=== PATIENT | female | born 1950 | race Caucasian/White ===

== ENCOUNTER 2019-01-08 12:11 | Emergency (ER) | payer MEDICARE, OTHER ==
[~2019-01-08] VITALS: Ht 165.1 cm; Wt 93.4 kg
--- OUTSIDE RECORDS SUMMARY | 2019-01-08 12:13 | XMS REPORT ---
Author Author Admin, [place] Organization [facility] Address [address] [address] Phone Allergies, Adverse Reactions, Alerts Allergy Name Reaction Description Start Date Severity Status Provider MORPHINE Critical Active Tanesha Sloan MD Conditions or Problems Problem Name Problem Code Onset Date Status Entry Date Provider Comment Standard Description Annotate GENERALIZED ANXIETY DISORDER Active Ana Estes PMHNP Generalized anxiety disorder Unspecified cervical disc disorder at C4-C5 level Active Agapito Quan MD (res) s/p discectomy on 07/22/17 Trochanteric bursitis, right 726.5 Active Tanesha Sloan MD Enthesopathy of hip region Hip joint pain, right 719.45 Active Tanesha Sloan MD Pain in joint involving pelvic region and thigh Poor dentition 520.9 Active Agapito Quan MD (res) Unspecified disorder of tooth development and eruption Patient has full dentures 520.0 Active Chente Levine MD Anodontia Vaccination for strep pneumonia with Prevnar 13 V03.82 Active Chente Levine MD Need for prophylactic vaccination against Streptococcus pneumoniae [pneumococcus] Arm lesion 709.9 Active Chente Levine MD Unspecified disorder of skin and subcutaneous tissue Screening for malignancy, skin V76.43 Active Chente Levine MD Screening for malignant neoplasms of the skin Age related nuclear cataract, bilateral 366.16 Active Agapito Quan MD (res) Senile nuclear sclerosis Dyslipidemia 272.4 Active Mariluz Moore MD Other and unspecified hyperlipidemia Obesity Active Mariluz Moore MD Obesity, unspecified BMI 33.0-33.9 Active Chente Levine MD Body Mass Index 33.0-33.9, adult Decreased vision 369.00 Active Chente Levine MD Blindness of both eyes, impairment level not further specified Lumbago 724.2 Active Chente Levine MD Lumbago Allergic rhinitis 477.9 Active Tanesha Sloan MD Allergic rhinitis, cause unspecified Constipation Unspecified 564.00 Active Tanesha Sloan MD Constipation, unspecified Hoarseness 784.42 Active Tanesha Sloan MD Dysphonia ANXIETY DISORDER, UNSPECIFIED Active Ana Estes PMHNP Anxiety state, unspecified DEPRESSIVE DISORDER, MAJOR, RECURRENT EPISODE, MILD Active Ana Estes PMHNP Major depressive disorder, recurrent episode, mild degree Cough ICD-786.2 Inactive Tram Carrion MD (res) Dysuria ICD-788.1 Inactive Tram Carrion MD (res) Insect bite ICD-919.4 Inactive Tram Carrion MD (res) Nancie of vagina ICD-112.1 Inactive Tram Carrion MD (res) Scientific Editor well woman exam ICD-V72.31 Inactive Tram Carrion MD (res) Screening for lipid disorders ICD-V77.91 Inactive Tram Carrion MD (res) Thrush, oral ICD-112.0 Inactive Tram Carrion MD (res) Vaginal discharge ICD-623.5 Inactive Tram Carrion MD (res) Cough 786.2 Resolved Tanesha Sloan MD Cough Dysuria 788.1 Resolved Tanesha Sloan MD Dysuria Insect bite 919.4 Resolved Tanesha Sloan MD Insect bite, nonvenomous, of other, multiple, and unspecified sites, without mention of infection Nancie of vagina 112.1 Resolved Tanesha Sloan MD Candidiasis of vulva and vagina Scientific Editor well woman exam V72.31 Resolved Tanesha Sloan MD Routine gynecological examination Screening for lipid disorders V77.91 Resolved Tanesha Sloan MD Screening for lipoid disorders Thrush, oral 112.0 Resolved Tanesha Sloan MD Candidiasis of mouth Vaginal discharge 623.5 Resolved Tanesha Slaon MD Leukorrhea, not specified as infective Medication List Medication Instructions Start Date Stop Date Generic Name NDC Status Provider Patient Instruction NAPROXEN 500 MG ORAL TABLET 1 by mouth twice a day as needed for pain and inflammation NAPROXEN 77641301940 Active Agapito Quan MD (res) Active ENSURE ORAL LIQUID 1 can three times a day NUTRITIONAL SUPPLEMENTS 20859528405 Active Agapito Quan MD (res) Active TESSALON PERLES 100 MG ORAL CAPSULE 1 by mouth 3 times a day as needed for cough BENZONATATE 22156615993 Active Agapito Quan MD (res) Active AZELASTINE HCL 0.15 % NASAL SOLUTION spray in each nostril as directed AZELASTINE HCL 72928076281 Active Chente Levine MD Active DIFLUCAN 150 MG ORAL TABLET take one tab By Mouth once then repeat dose in 72 hours FLUCONAZOLE 36527479096 Active Agapito Quan MD (res) Active TRAZODONE HCL 150 MG ORAL TABLET Take one tablet By Mouth QHS TRAZODONE HCL 41257905015 Active Ana Estes PMHNP Active CLONAZEPAM 2 MG ORAL TABLET take one tablet By Mouth BID As Needed for anxiety CLONAZEPAM 11720327354 Active Ana Estes [facility] Active LOSARTAN POTASSIUM 100 MG ORAL TABLET Take one By Mouth every morning for blood pressure LOSARTAN POTASSIUM 20760464938 Active Tanesha Sloan MD Active TRAMADOL HCL 50 MG ORAL TABLET Take one tablet By Mouth every 6 hrs As Needed TRAMADOL HCL 17544290735 Active Ana Estes [facility] Active VENLAFAXINE HCL ER 225 MG ORAL TABLET EXTENDED RELEASE 24 HOUR Take 1 tablet By Mouth QAM VENLAFAXINE HCL 06000204888 Active Ana Estes [facility] Active ZETIA 10 MG ORAL TABLET Take one tablet By Mouth Q EZETIMIBE 83946351052 Active Mignon Matthews [facility] GAS APPLIANCE INSTALLER Active MIRTAZAPINE 7.5 MG ORAL TABLET Take 1 tablet By Mouth QHS MIRTAZAPINE 7.5 MG ORAL TABLET 197058 MIRTAZAPINE Inactive PROZAC 20 MG ORAL CAPSULE Take 1 tablet By Mouth QHS PROZAC 20 MG ORAL CAPSULE 804521 FLUOXETINE HCL Inactive CLOTRIMAZOLE 10 MG MOUTH/THROAT ALL place on tongue and allow to dissolve five times a day for two weeks CLOTRIMAZOLE 10 MG MOUTH/THROAT ALL 545112 CLOTRIMAZOLE Inactive CELEXA 10 MG ORAL TABLET Take one tablet By Mouth QHS CELEXA 10 MG ORAL TABLET 661107 CITALOPRAM HYDROBROMIDE Inactive ZOLPIDEM TARTRATE 5 MG ORAL TABLET Take one tablet By Mouth QHS As Needed for insomnia ZOLPIDEM TARTRATE 5 MG ORAL TABLET 728600 ZOLPIDEM TARTRATE Inactive MIRTAZAPINE 7.5 MG ORAL TABLET Take 1 tablet By Mouth QHS MIRTAZAPINE 94699600922 No Longer Active Ana Estes [facility] Active PROZAC 20 MG ORAL CAPSULE Take 1 tablet By Mouth QHS FLUOXETINE HCL 02771669454 No Longer Active Ana Estes [facility] Active CLOTRIMAZOLE 10 MG MOUTH/THROAT ALL place on tongue and allow to dissolve five times a day for two weeks CLOTRIMAZOLE 21010896052 No Longer Active Agapito Quan MD (res) Active BELSOMRA 10 MG ORAL TABLET Take one tablet By Mouth QHS SUVOREXANT 20221538768 No Longer Active Ana Estes HN Active CELEXA 10 MG ORAL TABLET Take one tablet By Mouth QHS CITALOPRAM HYDROBROMIDE 40113323816 No Longer Active Ana Estes HN Active ZOLPIDEM TARTRATE 5 MG ORAL TABLET Take one tablet By Mouth QHS As Needed for insomnia ZOLPIDEM TARTRATE 62761853121 No Longer Active Ana RIZVIHN Active Immunizations Vaccine Administration Date Value Standard Description PEDIATRIC PNEUMOCOCCAL VACCINE ([id number]) #1 given pneumococcal conjugate vaccine, 13 valent Vital Signs Date Name Value Unit Range Description blood pressure, diastolic 67 mm[Hg] BP amato blood pressure, systolic 107 mm[Hg] BP sys height E&M 65 [in_us] Bdy height pulse rate E&M 76 /min Heart rate weight E&M 206.13 [lb_av] Weight Measured blood pressure, diastolic 87 mm[Hg] BP amato blood pressure, systolic 144 mm[Hg] BP sys height E&M 65 [in_us] Bdy height pulse rate E&M 82 /min Heart rate weight E&M 203.13 [lb_av] Weight Measured blood pressure, diastolic 73 mm[Hg] BP amato blood pressure, systolic 112 mm[Hg] BP sys height E&M 65 [in_us] Bdy height pulse rate E&M 76 /min Heart rate weight E&M 200 [lb_av] Weight Measured blood pressure, diastolic 84 mm[Hg] BP amato blood pressure, systolic 126 mm[Hg] BP sys height E&M 65 [in_us] Bdy height pulse rate E&M 80 /min Heart rate weight E&M 198.60 [lb_av] Weight Measured blood pressure, diastolic 84 mm[Hg] BP amato blood pressure, systolic 130 mm[Hg] BP sys height E&M 65 [in_us] Bdy height pulse rate E&M 67 /min Heart rate weight E&M 196.25 [lb_av] Weight Measured blood pressure, diastolic 78 mm[Hg] BP amato blood pressure, systolic 125 mm[Hg] BP sys height E&M 65 [in_us] Bdy height pulse rate E&M 79 /min Heart rate weight E&M 199.60 [lb_av] Weight Measured Diagnostic Results Date Name Value Unit Range Description Lab Report: Comp. Metabolic Panel (14), Lipid Panel - Chemistry sodium, serum 146 mmol/L 134-144 Office Visit: Acute Visit RM#5-quan - Urinalysis protein, urine, semiquantitative (dipstick) 2+ Lab Report: Comp. Metabolic Panel (14), Lipid Panel - Chemistry very low density lipoproteins 21 mg/dL 5-40 carbon dioxide, venous blood 25 mmol/L 18-29 chloride, serum 105 mmol/L 96-106 triglyceride, serum, fasting 103 mg/dL 0-149 calcium, serum 9.4 mg/dL 8.7-10.3 urea nitrogen, blood 11 mg/dL 8-27 alanine aminotransferase (SGPT), serum 13 U/L 0-32 Office Visit: Acute Visit RM#5-quan - Urinalysis leukocyte esterase, urine, by dipstick negative specific gravity, urine 1.010 Lab Report: Comp. Metabolic Panel (14), Lipid Panel - Chemistry protein, total, serum 6.3 g/dL 6.0-8.5 Office Visit: Acute Visit RM#5-quan - Urinalysis nitrite, urine, semiquantitative negative Lab Report: Comp. Metabolic Panel (14), Lipid Panel - Chemistry alkaline phosphatase, serum 93 U/L 39-117 Office Visit: Acute Visit RM#5-quan - Urinalysis urine color yellow bilirubin, urine negative Lab Report: Comp. Metabolic Panel (14), Lipid Panel - Chemistry LDL cholesterol, serum 124 mg/dL 0-99 urea nitrogen/creatinine ratio, serum 15 12-28 Office Visit: Acute Visit RM#5-quan - Urinalysis glucose, urine, semiquantitative negative Lab Report: Comp. Metabolic Panel (14), Lipid Panel - Chemistry HDL cholesterol, serum 47 mg/dL >39 Lab Report: Comp. Metabolic Panel (14), Lipid Panel - Genetics/fertility eGFR if 97 mL/min/1.73m2 >59 Lab Report: Comp. Metabolic Panel (14), Lipid Panel - Chemistry globulin, serum 2.5 1.5-4.5 Estimated Glomerular Filtration Rate (calc) 84 mL/min/1.73m2 >59 albumin/globulin ratio, serum 1.5 1.2-2.2 creatinine, serum 0.74 mg/dL 0.57-1.00 cholesterol, serum 192 mg/dL 531-887 1971/08/21 bilirubin, serum, total 0.4 mg/dL 0.0-1.2 Office Visit: Acute Visit RM#5-quan - Urinalysis appearance, urine clear blood in urine (hemoglobin) by dipstick negative Lab Report: Comp. Metabolic Panel (14), Lipid Panel - Chemistry blood glucose, random 108 mg/dL 65-99 aspartate aminotransferase (SGOT), serum 14 U/L 0-40 Office Visit: Acute Visit RM#5-quan - Urinalysis urobilinogen, urine, semiquantitative (dipstick) 1 pH, urine, semiquantitative 6.0 Lab Report: Comp. Metabolic Panel (14), Lipid Panel - Chemistry potassium, serum 4.9 mmol/L 3.5-5.2 Office Visit: Acute Visit RM#5-quan - Urinalysis ketones, urine, by test strip negative Lab Report: Comp. Metabolic Panel (14), Lipid Panel - Chemistry albumin, serum 3.8 g/dL 3.6-4.8 Encounters Date Encounter Provider Code Facility 08:39:31 CDT Est Patient Exp Problem - 53780 Ana Estes PMHNP CPT-24261 [facility] 08:54:30 CDT Est Patient Exp Problem - 01297 Ana Estes PMHNP CPT-64024 [facility] 10:12:21 CDT Est Patient Exp Problem - 80581 Ana Estes PMHNP CPT-29162 [facility] 10:15:18 CLASSIFIER TENDER Est Patient Exp Problem - 92232 Ana Estes PMHNP CPT-54860 [facility] 09:41:40 CLASSIFIER TENDER Est Patient Exp Problem - 56597 Ana Estes PMHNP CPT-73206 [facility] 10:27:51 CDT Est Patient Detailed - 41156 Ana Estes PMHNP CPT-24479 [facility] 09:35:55 CDT Est Patient Exp Problem - 37805 Ana Parkinsonley PMHNP CPT-51337 [facility] 17:27:27 CDT Est Patient Exp Problem - 36157 Ana Estes PMHNP CPT-03010 [facility] 13:50:32 CDT Est Patient Exp Problem - 23344 [facility] 16:54:56 CDT Est Patient Exp Problem - 91172 Tanesha Sloan MD CPT-76005 [facility] 22:30:53 CDT Est Patient Exp Problem - 60635 Tanesha Sloan MD CPT-30977 [facility] 09:33:01 CLASSIFIER TENDER Est Patient Exp Problem - 46479 Ana Estes PMHNP CPT-94629 [facility] 13:52:46 CLASSIFIER TENDER Est Patient Exp Problem - 61287 Agapito Quan MD (res) CPT-02564 [facility] 00:07:42 CLASSIFIER TENDER Est Patient Detailed - 35448 Tanesha Sloan MD CPT-74658 [facility] 08:57:28 CLASSIFIER TENDER Est Patient Exp Problem - 96339 Ana Estes PMHNP CPT-51362 [facility] 09:34:08 CDT Est Patient Exp Problem - 93584 Ana Estes PMHNP CPT-20852 [facility] 15:06:47 CDT Est Patient Exp Problem - 29637 Chente Levine MD CPT-04668 [facility] 11:35:37 CDT Est Patient Exp Problem - 13932 Ana Estes PMHNP CPT-83231 [facility] 11:05:55 CDT Est Patient Exp Problem - 34273 Mariluz Moore MD CPT-39315 [facility] 10:54:32 CDT Est Patient Exp Problem - 82182 Agapito Quan MD (res) CPT-70393 [facility] 11:20:59 CDT Est Patient Exp Problem - 98521 Ana Estes PMHNP CPT-17111 [facility] 15:13:12 CDT Est Patient Exp Problem - 78741 Agapito Quan MD (res) CPT-96323 [facility] 11:24:04 CDT Est Patient Exp Problem - 19386 Ana Estes PMHNP CPT-45882 [facility] Procedures Code Procedure Name Date Entry Date Standard Description CPT-42558 Aspiration / Injection - Intermediate Joint / Bursa 16:54:56 CDT CPT-79720 Psychotherapy 45 (38-52*) min - 23121 (with patient and/or family member) 11:18:48 CDT CPT-59696 Psychotherapy 45 (38-52*) min - 30366 (with patient and/or family member) 11:46:35 CDT CPT-83562 Psychotherapy 45 (38-52*) min - 70646 (with patient and/or family member) 14:56:54 CLASSIFIER TENDER CPT-13650 Psychotherapy 45 (38-52*) min - 92958 (with patient and/or family member) 11:11:45 CLASSIFIER TENDER CPT-78891 Prevnar 13 Valent (Pneumoncoccal Conj Vaccine IM) - 19041 13:52:48 CLASSIFIER TENDER CPT-40224 Psychotherapy 45 (38-52*) min - 33789 (with patient and/or family member) 10:42:55 CLASSIFIER TENDER CPT-36505 Psychotherapy 45 (38-52*) min - 88915 (with patient and/or family member) 11:53:54 CLASSIFIER TENDER CPT-31362 Diagnostic evaluation (no medical) - 68323 10:37:12 CLASSIFIER TENDER CPT-71840 [place] - In House 11:05:55 CDT CPT-02977 Est Patient Well Exam (65 & Over) - 96974 11:05:55 CDT CPT-82567 Diagnostic evaluation with medical - 62924 13:11:56 CDT
--- OUTSIDE RECORDS SUMMARY | 2019-01-08 12:13 | XMS REPORT ---
Author Author [facility] Address Unknown Phone Unavailable Care Team Providers Care Knotting Machine Operator Name Role Phone Unavailable Unavailable Payers Payer Name Policy Type Policy Number Effective Date Expiration Date Problems This patient has no known problems. Allergies, Adverse Reactions, Alerts Allergy Name Allergy Type Status Severity Reaction(s) Onset Date Inactive Date Treating Clinician Comments morphine DA Active U 2018-07-29 00:00:00 morphine DA Active U 2018-06-23 00:00:00 morphine DA Active U 2018-01-12 00:00:00 morphine DA Active U 2017-09-17 00:00:00 MORPINE DA Active SV 2017-09-15 00:00:00 Medications This patient has no known medications. Results Test Description Test Time Test Comments Text Results Atomic Results Result Comments - XR FOOT 3 + V RT 2018-07-29 12:25:00 FAX: SANTANA PEARSON NP Friendly: St: REG Name: XAVIER JAVIER [facility] : 1950 Age/S: 67/F Johan Guzmán Unit #: [id number] Loc: [place] [address] Phys: SANTANA PEARSON NP Acct: [id number] Dis Date: Status: REG ER PHONE #: [phone] Exam Date: 07/29/2018 1218 FAX #: [phone] Reason: Pain EXAMS: CPT CODE: [id number] XR FOOT 3 + V RT 12412 CLINICAL HISTORY: Left foot pain TECHNIQUE: AP, oblique, and lateral views of the right foot COMPARISON: None FINDINGS: No acute fracture or dislocation. Bony trabecular pattern is unremarkable. No cortical destruction or periosteal reaction. Calcaneal enthesophytes. Mild degenerative changes of the midfoot and interphalangeal joints. Regional soft tissues are unremarkable. IMPRESSION: No acute fracture or dislocation. Mild polyarticular degenerative arthrosis. at 1225 Reported and signed by: Jeny Asif D.O. CC: SANTANA PEARSON NP Technologist: FAUSTO HOWELL(R) Trnscrd Date/Time/By: 07/29/2018 (5850) : By: [email or web address] Orig Print D/T: S: 07/29/2018 (8419) PAGE 1 Signed Report B-TYPE NATRIURETIC PEPTIDE 2018-06-24 00:08:00 B-TYPE NATRIURETIC PEPTIDE (test code=BNP) 24.17 pgram/mL 0-100 BASIC METABOLIC [id number] 00:06:00* Test Item Value Reference Range Comments SODIUM (test code=NA) 143 mmol/L 136-145 POTASSIUM (test code=K) 4.2 mmol/L 3.5-5.1 CHLORIDE (test code=CL) 106.0 mmol/L 98-107 CARBON DIOXIDE (test code=CO2) 31.0 mmol/L 21-32 ANION GAP (test code=GAP) 10.2 10-20 GLUCOSE (test code=GLU) 93 mg/dL 74-106 BLOOD UREA NITROGEN (test code=BUN) 15 mg/dL 7-18 GLOMERULAR FILTRATION RATE (test code=GFR) > 60 mL/min >=60 Estimated GFR by using Modified MDRD formula.Chronic kidney disease is defined as either kidney damageor GFR <60 mL/min/1.73 m2 for >3 months. CREATININE (test code=CREAT) 0.70 mg/dL 0.55-1.02 Note change in reference range due to change in reagent. BUN/CREATININE RATIO (test code=BUN/CREA) 21.4 10-20 CALCIUM (test code=CA) 8.8 mg/dL 8.5-10.1 [id number] 00:06:00* Test Item Value Reference Range Comments TROPONIN-I (test code=TROPI) <0.015 ng/mL 0-0.045 - XR CHEST 1 [id number] 00:03:00 FAX: Gordon Calvo MD [phone] Friendly: St: PRE Name: XAVIER GONZALES [facility] : [birth year] Age/S: 67/F [address] [facility] Unit #: [id number] Loc: [place] [address] Phys: Gordon Calvo MD Acct: [id number] Dis Date: Status: PRE ER PHONE #: [phone] Exam Date: 06/23/2018 2352 FAX #: [phone] Reason: Shortness of Breath EXAMS: CPT CODE: [id number] XR CHEST 1 V 71922 HISTORY: Female, 67 years of age with Shortness of Breath, inhaled flea fogger EXAM: CHEST X-RAY, ONE VIEW. COMPARISON: 01/12/2018 COMMENT: Fro ntal view of the chest is provided. Lungs are hyperinflated suggesting moraima e COPD. No focal infiltrate, consolidation, mass lesion, or effusion is se en. Cardiac silhouette is within normal limits. No acute bony abnormalitie s. IMPRESSION: No focal infiltrate or effusion. Location code: R16 at 0003 Reported and signed by: Lacie Peguero MD CC: Gordon Calov MD Technologist: RT LINNEA(Janie) Bo [facility] Date/Time/By: 06/24/2018 (0003) : By: [email or web address] Orig Print D/T: S: 06/24/2018 (0006) PAGE 1 Daphne d Report CBC W/O [id number] 23:54:00* Test Item Value Reference Range Comments WHITE BLOOD CELL (test code=WBC) 8.5 K/mm3 4.5-12.5 RED BLOOD CELL (test code=RBC) 4.68 mill/mm3 3.7-5.2 HEMOGLOBIN (test code=HGB) 12.9 gram/dL 11.5-15.5 HEMATOCRIT (test code=HCT) 41.1 % 36.0-46.0 MEAN CELL VOLUME (test code=MCV) 87.8 fL 80-98 MEAN CELL HGB (test code=MCH) 27.6 picogram 27.0-33.0 MEAN CELL HGB CONCETRATION (test code=MCHC) 31.4 gram/dL 33.0-36.0 RED CELL DISTRIBUTION WIDTH (test code=RDW) 15.9 % 11.6-16.2 PLATELET COUNT (test code=PLT) 256 K/mm3 150-450 MEAN PLATELET VOLUME (test code=MPV) 10.3 fL 6.7-11.0
[2019-01-08] MEDS ORDERED: KETOROLAC TROMETHAMINE 30 MG/ML VIAL IV STA (12:19)
[2019-01-08] MEDS ORDERED: MORPHINE SULFATE 2 MG/ML SYR 1ML IV STA (12:19)
[2019-01-08] MEDS ORDERED: SODIUM CHLORIDE 0.9% 1000ML 1,000 ML IV STA (12:19)
[2019-01-08] MEDS ORDERED: CEFTRIAXONE SOD 1 GM/NS 50 ML 50 ML IV STA (12:19)
[2019-01-08] MEDS ORDERED: ONDANSETRON HCL INJ 2MG/ML 2ML 2 MG/ML VIAL IV STA (12:19)
[2019-01-08 12:39] LABS: BASOPHILS % 0.5 % (0.0-1.0); EOSINOPHILS # (AUTO) 0.8 (0.0-0.4); EOSINOPHILS % 11.3 % (0.0-6.0); HEMATOCRIT 42.5 % (34.2-44.1); HEMOGLOBIN 13.6 g/dL (12.0-16.0); LYMPHOCYTES # (AUTO) 1.9 (1.0-3.2); LYMPHOCYTES % 24.8 % (18.0-39.1); MEAN CORPUSCULAR HEMOGLOBIN 27.9 pg (28-32); MEAN CORPUSCULAR VOLUME 87.1 fL (81-99); MONOCYTES # (AUTO) 0.5 (0.2-0.8); MONOCYTES % 6.2 % (4.4-11.3); NEUTROPHILS # (AUTO) 4.2 (2.1-6.9); NEUTROPHILS % 56.8 % (38.7-80.0); PLATELET COUNT 257 x10e3/uL (140-360); RED BLOOD COUNT 4.88 x10e6/uL (3.6-5.1)
[2019-01-08 12:51] LABS: BILIRUBIN,URINE NEGATIVE (NEGATIVE); CLARITY,URINE SL CLOUDY (CLEAR); COLOR,URINE YELLOW (YELLOW); KETONES,URINE NEGATIVE (NEGATIVE); LEUKOCYTE ESTERASE ,URINE NEGATIVE (NEGATIVE); NITRITE,URINE NEGATIVE (NEGATIVE); PROTEIN,URINE DIPSTICK NEGATIVE (NEGATIVE); URINE UROBILINOGEN 0.2 mg/dL (0.2 - 1)
[2019-01-08 12:59] LABS: CALCIUM OXALATE CRYSTALS,UR MODERATE (FEW); MUCUS,URINE FEW (RARE)
[2019-01-08 13:00] LABS: ALANINE AMINOTRANSFERASE 13 IU/L (0-55); ALBUMIN 3.3 g/dL (3.5-5.0); ALBUMIN/GLOBULIN RATIO 0.9 (0.8-2.0); ALKALINE PHOSPHATASE 97 IU/L (40-150); ANION GAP 13.4 mmol/L (8-16); BACTERIA,URINE FEW /HPF; BLOOD UREA NITROGEN 13 mg/dL (7-26); BUN/CREATININE RATIO 17 (6-25); CALCIUM 9.2 mg/dL (8.4-10.2); CARBON DIOXIDE 25 mmol/L (22-29); CHLORIDE 100 mmol/L (98-107); CREATININE, SERUM 0.77 mg/dL (0.57-1.11); EPITHELIAL CELLS,URINE FEW /LPF; EST GLOMERULAR FILTRATION RATE > 60 ML/MIN (60-); GLUCOSE 123 mg/dL (74-118); LIPASE 10 U/L (8-78); MAGNESIUM 1.8 MG/DL (1.3-2.1); POTASSIUM 3.4 mmol/L (3.5-5.1); RBC,URINE 0-5 /HPF (0-5); SODIUM 135 mmol/L (136-145); WBC,URINE (MAN) 0-5 /HPF (0-5)
--- NOTE | 2019-01-08 13:51 | Diagnostic Imaging Report ---
CT of the abdomen and pelvis History: Kidney stones Comparison: None available. Technique: Multidetector CT scanning of the abdomen and pelvis was performed from the level of the lung bases to the inferior pubic ramus without contrast DOSE REDUCTION: The examination was performed according to departmental dose-optimization program which includes automated exposure control, adjustment of the mA and/or kV according to patient size and/or use of iterative reconstruction technique. Discussion: The lung bases are clear. Lack of IV contrast limits evaluation of solid and hollow visceral organs. No focal hepatic lesions are identified. The gallbladder is surgically absent. There is no intrahepatic or extrahepatic ductal dilatation. The spleen is within normal limits. The adrenal glands are unremarkable. The pancreas is homogeneous in attenuation. There is no pancreatic ductal dilatation. The kidneys are normal in size. There is no hydroureteronephrosis bilaterally. No obstructing renal calculi are identified. 2 mm nonobstructing calculus is seen in the midpole of the right kidney. There is no perinephric stranding. The stomach, small, and large bowel are nondistended. There is no evidence of obstruction. No bowel wall thickening is appreciated. There are no signs of appendicitis. There is no free intraperitoneal air or ascites. The abdominal aorta is of normal course and caliber. The urinary bladder is within normal limits. The surgically absent. There are multilevel degenerative changes of the thoracolumbar spine which are most pronounced at L2-L3 and L3-L4. No acute osseous abnormalities are identified. IMPRESSION: 1. 2 mm nonobstructing right midpole kidney calculus. No evidence of hydronephrosis bilaterally. 2. Status post hysterectomy and cholecystectomy Signed by: Pop Mason MD on 01/08/2019 1:48 PM
[2019-01-08 15:11] VITALS: BP 123/53
== END 2019-01-08 15:14 | disposition home or self-care (01) ==
LOC: ER 12:11
DX: M54.5 Low back pain (principal); N20.1 Calculus of ureter; R10.31 Right lower quadrant pain; I10 Essential (primary) hypertension; F41.9 Anxiety disorder, unspecified; F32.9 Major depressive disorder, single episode, unspecified
CPT/HCPCS: 36415; 74176; 80053; 81001; 83690; 83735; 85025; 87086; 99284; J0696; J1885; J2270; J2405; J7030

== ENCOUNTER 2020-08-12 10:58 | Emergency (ER) | payer MEDICARE, OTHER ==
[~2020-08-12] VITALS: Ht 165.1 cm; Wt 93.4 kg
[2020-08-12] MEDS ORDERED: KETOROLAC TROMETHAMINE 30 MG/ML VIAL IM STA (11:02)
[2020-08-12 12:58] VITALS: BP 134/76
== END 2020-08-12 13:10 | disposition home or self-care (01) ==
LOC: ER 11:04
DX: M54.2 Cervicalgia (principal); V43.62XA Car passenger injured in collision with other type car in traffic accident, initial encounter; Y92.414 Local residential or business street as the place of occurrence of the external cause; R51.9 Headache, unspecified; M25.552 Pain in left hip; I10 Essential (primary) hypertension; Z87.442 Personal history of urinary calculi; E78.5 Hyperlipidemia, unspecified; F41.8 Other specified anxiety disorders
CPT/HCPCS: 70450; 72125; 99284; J1885

== ENCOUNTER → 2022-02-17 | Outpatient (CLI) | payer MEDICARE | LOC: MRI 08:45 | PROVIDERS: ATTEND Family Medicine | DX: M54.51 Vertebrogenic low back pain (principal) | CPT/HCPCS: 72148 ==